=== PATIENT | male | born 1945 | race Caucasian/White ===

== ENCOUNTER 2016-05-23 16:15 | Emergency (ER) | payer MEDICARE, OTHER ==
[~2016-05-23] VITALS: Ht 177.8 cm; Wt 80.0 kg
[~2016-05-23 16:15] MED LIST: ALBU8I INH; LISI-360 PO; LORTA5 PO; OMEP20TA PO; PRED20 PO; SIMV10 PO; SYMB160A INH; TIOT18I INH
[2016-05-23 16:16] VITALS: BP 137/86; PULSE 84; RESP 15; TEMP 98.1; O2SAT 87
[2016-05-23 21:00] VITALS: BP 130/80; PULSE 78; RESP 20; O2SAT 96
[2016-05-23] MEDS ORDERED: methylPREDNISolone SOD SUCC 125 MG/2 ML VIAL IVP ONE (21:00)
[2016-05-23] MEDS ORDERED: SODIUM CHLORIDE 0.9% FLUSH 5 ML FLUSH IVF PRN (21:00)
--- NOTE | 2016-05-23 21:12 | PD ---
HPI Chief Complaint: Respiratory Symptoms Time Seen by Provider: 21:05 Travel History International Travel<30 days: Yes Contact w/Intl Traveler<30days: Yes Name of Country Traveled to: [place] 05/03/16 Traveled to known affect area: Yes History of Present Illness HPI 71-year-old male presents to the emergency Department with 2 day history of increased shortness of breath, cough, and decreased oxygenation. Patient normally uses 2 L of oxygen via nasal cannula at home for emphysema. Patient is a previous smoker. Patient denies fever, chills, nausea, vomiting, or diarrhea. He's has a little bit of a sore throat today. He denies significant sputum production with his cough. Patient states he's never used an inhaler or nebulizer in the past. Patient does state he has needed steroids in the past for his lung disease. He is followed by the [place]. Patient also has 2 diabetes for which he takes metformin. He has no known drug allergies. PFSH Past Medical History Cancer: No Cardiovascular Problems: No COPD: Yes Diabetes: Yes Diminished Hearing: No Endocrine: No Gastrointestinal Disorders: Yes (ACID REFLUX ) Genitourinary: No Hepatitis: No Hiatal Hernia: No Hypertension: Yes Immune Disorder: No Musculoskeletal: No Neurologic: No Psychiatric: No Reproductive: No Respiratory: Yes (COPD) Immunizations Current: Yes (H1N1) Thyroid Disease: No Past Surgical History Abdominal Surgery: Yes (appendectomy) AICD: No Appendectomy: Yes Arteriovenous Shunt: No Body Medical Devices: NONE Cardiac Surgery: No Ear Surgery: No Endocrine Surgery: No Eye Surgery: No Genitourinary Surgery: No Insulin Pump: No Joint Replacement: No Pacemaker: No Other Surgery: Yes (VASECTOMY) Social History Alcohol Use: Yes (2 BEERS WEEKLY) Tobacco Use: Yes (CIGARETTES, 1 PPD X 46 YEARS) Substance Use: No Allergies-Medications (Allergen,Severity, Reaction): Coded Allergies: No Known Allergies (Verified , 05/02/15) Reported Meds & Prescriptions Reported Meds & Active Scripts Active Hydrocodone/Acetaminophen 5 mg/325 mg 1 Tab Tab 1 Tab PO Q4H PRN Reported Ventolin Hfa (Albuterol Sulfate) 8 Gm Aero 1 Puff INH Q4H PRN * SHAKE WELL BEFORE USE * Deltasone 20 Mg Tab (Prednisone) 20 Mg Tab 20 Mg PO BID Lisinopril 10 mg (Lisinopril) 10 Mg Tab 10 Mg PO DAILY Simvastatin 10 mg (Simvastatin) 10 Mg Tab 5 Mg PO HS Spiriva 18 Mcg Oral Inh (Tiotropium [place]) 18 Mcg Inhp 1 Cap INH DAILY Symbicort (Budesonide/Formoterol Fumarate) 160 Mcg/4.5 Mcg Aer 2 Puff INH BID * SHAKE WELL BEFORE USE * Omeprazole 20 mg (Omeprazole) 20 Mg Tab 40 Mg PO DAILY Review of Systems Except as stated in HPI: all other systems reviewed are Neg General / Constitutional: No: Fever Eyes: No: Visual changes HENT: Positive: Sore Throat, No: Headaches, Rhinitis, Rhinorrhea, Congestion, Nosebleed, Earache Cardiovascular: No: Chest Pain or Discomfort Respiratory: Positive: Cough, Shortness of Breath, Wheezing, No: Sneezing, Orthopnea, Hemoptysis, Stridor, Night Sweats, Pleuritic Pain Gastrointestinal: No: Nausea, Vomiting, Diarrhea, Abdominal Pain Genitourinary: No: Dysuria Musculoskeletal: No: Pain Skin: No Rash Neurologic: No: Weakness Psychiatric: No: Depression Endocrine: No: Polydipsia Hematologic/Lymphatic: No: Easy Bruising Physical Exam Narrative GENERAL: Patient is in mild to moderate respiratory distress but appears otherwise medically stable. Patient is able to speak in short sentences. SKIN: Warm and dry. Normal color. Normal turgor. HEAD: Atraumatic. Normocephalic. EYES: Pupils equal and round. No scleral icterus. No injection or drainage. ENT: No nasal bleeding or discharge. Mucous membranes pink and moist. Mild sinus congestion. TMs are clear bilaterally. Pharynx appears normal with mild irritation in the posterior pharynx. Airway is patent. NECK: Trachea midline. No JVD. Supple nontender. CARDIOVASCULAR: Regular rate and rhythm. No murmurs gallops or rubs. RESPIRATORY: Moderate accessory muscle use. No retractions. Patient has mild tachypnea. Diffuse end expiratory wheezes to auscultation. Breath sounds equal bilaterally but diminished throughout. No rales or rhonchi appreciated. MUSCULOSKELETAL: Extremities without clubbing, cyanosis, or edema. No obvious deformities. NEUROLOGICAL: Awake and alert. No obvious cranial nerve deficits. Motor grossly within normal limits. Five out of 5 muscle strength in the arms and legs. Normal speech. PSYCHIATRIC: Appropriate mood and affect; insight and judgment normal. Data Data Last Documented VS Vital Signs Date Time Temp Pulse Resp B/P Pulse Ox O2 Delivery O2 Flow Rate FiO2 05/23/16 16:16 98.1 84 15 137/86 87 Nasal Cannula 2 Orders Complete Blood Count With Diff (05/23/16 20:54) Comprehensive Metabolic Panel (05/23/16 20:54) B-Type Natriuretic Peptide (05/23/16 20:54) D-Dimer (05/23/16 20:54) Act Partial Throm Time (Ptt) (05/23/16 20:54) Prothrombin Time / Inr (Pt) (05/23/16 20:54) Ckmb (Isoenzyme) Profile (05/23/16 20:54) Troponin I (05/23/16 20:54) Urinalysis - C+S If Indicated (05/23/16 20:54) Influenzae A/B Antigen (05/23/16 20:54) Iv Access Insert/Monitor (05/23/16 20:54) Electrocardiogram (05/23/16 20:54) Ecg Monitoring (05/23/16 20:54) Oximetry (05/23/16 20:54) Oxygen Administration (05/23/16 20:54) Chest, Single Ap (05/23/16 20:54) Sodium Chloride 0.9% Flush (Ns Flush) (05/23/16 21:00) Methylprednisolone So Succ Inj (Solumedr (05/23/16 21:00) Albuterol-Ipratropium Neb (Duoneb Neb) (05/23/16 21:00) Labs Laboratory Tests Test 05/23/16 21:00 White Blood Count 5.6 TH/MM3 Red Blood Count 5.35 MIL/MM3 Hemoglobin 17.7 GM/DL Hematocrit 52.1 % Mean Corpuscular Volume 97.3 FL Mean Corpuscular Hemoglobin 33.1 PG Mean Corpuscular Hemoglobin 34.0 % Concent Red Cell Distribution Width 13.2 % Platelet Count 183 TH/MM3 Mean Platelet Volume 9.2 FL Neutrophils (%) (Auto) 48.2 % Lymphocytes (%) (Auto) 30.7 % Monocytes (%) (Auto) 17.8 % Eosinophils (%) (Auto) 3.0 % Basophils (%) (Auto) 0.3 % Neutrophils # (Auto) 2.7 TH/MM3 Lymphocytes # (Auto) 1.7 TH/MM3 Monocytes # (Auto) 1.0 TH/MM3 Eosinophils # (Auto) 0.2 TH/MM3 Basophils # (Auto) 0.0 TH/MM3 CBC Comment DIFF FINAL Differential Comment Prothrombin Time 11.0 SEC Prothromb Time International 1.0 RATIO Ratio Activated Partial 27.4 SEC Thromboplast Time D-Dimer Quantitative (PE/DVT) 0.37 MG/L FEU [facility] Medical Decision Making Medical Screen Exam Complete: Yes Emergency Medical Condition: Yes Differential Diagnosis History of emphysema. Pneumonia. COPD with acute exacerbation. Hypoxia. Narrative Course Patient is felt to be medically stable at time of exam. Patient is oxygenating at 94% on 2 L via nasal cannula. Labs ordered including CBC, CMP. IV access is obtained patient is given 125 mg Solu-Medrol IV as well as a DuoNeb 3. Chest x-ray is ordered. 2200 hrs. patient care is taken over by Dr. Chan. Condition: Stable Ricky Restrepo May 23, 2016 21:12
[2016-05-23] MEDS: RESP: ALBUTEROL 2.5 MG/IPRATROPIUM 0.5 MG NEB (SCH) INH (21:30)
[2016-05-23 21:33] LABS: AUTOMATED NEUTROPHIL # 2.7 TH/MM3 (1.8-7.7); BASOPHIL % 0.3 % (0.0-2.0); EOSINOPHIL # 0.2 TH/MM3 (0-0.4); HEMATOCRIT 52.1 % (39.0-51.0); HEMO FLAGS DIFF FINAL; LYMPH % 30.7 % (9.0-44.0); LYMPHOCYTE # 1.7 TH/MM3 (1.0-4.8); MEAN CELL VOLUME 97.3 FL (80.0-100.0); MEAN CORPUSCULAR HEMOGLOBIN 33.1 PG (27.0-34.0); MONO % 17.8 % (0.0-8.0); NEUT % 48.2 % (16.0-70.0); PLATELET COUNT 183 TH/MM3 (150-450); RED BLOOD COUNT 5.35 MIL/MM3 (4.50-5.90); RED CELL DISTRIBUTION WIDTH 13.2 % (11.6-17.2); WHITE BLOOD COUNT 5.6 TH/MM3 (4.0-11.0)
[2016-05-23 21:46] LABS: APTT (PATIENT) 27.4 SEC (24.3-30.1)
--- NOTE | 2016-05-23 21:53 | RADRPT ---
EXAM DATE/TIME: 05/23/2016 21:09 [facility] COMPARISON: CHEST PA & LAT, May 05, 2015, 9:05. INDICATIONS : SOB MEDICAL HISTORY : Diabetes mellitus type II. Chronic obstructive pulmonary disease. SURGICAL HISTORY : None. ENCOUNTER: Initial ACUITY: 1 day PAIN SCORE: 0/10 LOCATION: chest FINDINGS: A single view of the chest demonstrates emphysema with large bullous changes left lung base similar t o April 2015. There is also some basal scarring, compressive atelectasis and fibrotic changes. No effusion. No pneumothorax. CONCLUSION: 1. Bullous changes at the left lung base similar to 2014. There is scarring and atelectasis as well. Underlying emphysema. Heart size upper limits normal. Rakesh Vigil MD on May 23, 2016 at 21:50 Board Certified Radiologist. This report was verified electronically.
[2016-05-23 22:37] LABS: ALKALINE PHOSPHATASE 113 U/L (45-117); ALT (GPT) 35 U/L (12-78); ANION GAP 8 MEQ/L (5-15); AST (GOT) 27 U/L (15-37); BICARBONATE 29.2 MEQ/L (21.0-32.0); BLOOD UREA NITROGEN 15 MG/DL (7-18); CHLORIDE 100 MEQ/L (98-107); CREATINE KINASE 185 U/L (39-308); GLOMERULAR FILTRATION RATE 68 ML/MIN (>89); POTASSIUM 4.1 MEQ/L (3.5-5.1); SODIUM (NA) 137 MEQ/L (136-145); TOTAL BILIRUBIN ADULT 0.7 MG/DL (0.2-1.0)
[2016-05-23 22:50] LABS: CKMB 8.2 NG/ML (0.5-3.6)
[2016-05-24] MEDS ORDERED: ALBUAER3 INH (00:03)
[2016-05-24] MEDS ORDERED: PRED50 PO (00:03)
--- NOTE | 2016-05-24 00:03 | PD ---
Data Data Last Documented VS Vital Signs Date Time Temp Pulse Resp B/P Pulse Ox O2 Delivery O2 Flow Rate FiO2 05/23/16 16:16 98.1 84 15 137/86 87 Nasal Cannula 2 Orders Complete Blood Count With Diff (05/23/16 20:54) Comprehensive Metabolic Panel (05/23/16 20:54) B-Type Natriuretic Peptide (05/23/16 20:54) D-Dimer (05/23/16 20:54) Act Partial Throm Time (Ptt) (05/23/16 20:54) Prothrombin Time / Inr (Pt) (05/23/16 20:54) Ckmb (Isoenzyme) Profile (05/23/16 20:54) Troponin I (05/23/16 20:54) Urinalysis - C+S If Indicated (05/23/16 20:54) Influenzae A/B Antigen (05/23/16 20:54) Iv Access Insert/Monitor (05/23/16 20:54) Electrocardiogram (05/23/16 20:54) Ecg Monitoring (05/23/16 20:54) Oximetry (05/23/16 20:54) Oxygen Administration (05/23/16 20:54) Chest, Single Ap (05/23/16 20:54) Sodium Chloride 0.9% Flush (Ns Flush) (05/23/16 21:00) Methylprednisolone So Succ Inj (Solumedr (05/23/16 21:00) Albuterol-Ipratropium Neb (Duoneb Neb) (05/23/16 21:00) CKMB (05/23/16 21:00) CKMB% (05/23/16 21:00) Labs Laboratory Tests Test 05/23/16 21:00 White Blood Count 5.6 TH/MM3 Red Blood Count 5.35 MIL/MM3 Hemoglobin 17.7 GM/DL Hematocrit 52.1 % Mean Corpuscular Volume 97.3 FL Mean Corpuscular Hemoglobin 33.1 PG Mean Corpuscular Hemoglobin 34.0 % Concent Red Cell Distribution Width 13.2 % Platelet Count 183 TH/MM3 Mean Platelet Volume 9.2 FL Neutrophils (%) (Auto) 48.2 % Lymphocytes (%) (Auto) 30.7 % Monocytes (%) (Auto) 17.8 % Eosinophils (%) (Auto) 3.0 % Basophils (%) (Auto) 0.3 % Neutrophils # (Auto) 2.7 TH/MM3 Lymphocytes # (Auto) 1.7 TH/MM3 Monocytes # (Auto) 1.0 TH/MM3 Eosinophils # (Auto) 0.2 TH/MM3 Basophils # (Auto) 0.0 TH/MM3 CBC Comment DIFF FINAL Differential Comment Prothrombin Time 11.0 SEC Prothromb Time International 1.0 RATIO Ratio Activated Partial 27.4 SEC Thromboplast Time D-Dimer Quantitative (PE/DVT) 0.37 MG/L FEU Sodium Level 137 MEQ/L Potassium Level 4.1 MEQ/L Chloride Level 100 MEQ/L Carbon Dioxide Level 29.2 MEQ/L Anion Gap 8 MEQ/L Blood Urea Nitrogen 15 MG/DL Creatinine 1.08 MG/DL Estimat Glomerular Filtration 68 ML/MIN Rate Random Glucose 101 MG/DL Calcium Level 8.5 MG/DL Total Bilirubin 0.7 MG/DL Aspartate Amino Transf 27 U/L (AST/SGOT) Alanine Aminotransferase 35 U/L (ALT/SGPT) Alkaline Phosphatase 113 U/L Total Creatine Kinase 185 U/L Creatine Kinase MB 8.2 NG/ML Troponin I LESS THAN 0.02 NG/ML B-Type Natriuretic Peptide 108 PG/ML Total Protein 8.1 GM/DL Albumin 4.0 GM/DL [facility] Medical Record Reviewed: Yes Supervised Visit with CHARU: Yes Narrative Course I, Dr. Chan, have reviewed the advance practice practitioner's documentation and am in agreement, met with the patient face to face, made the diagnosis, and the medical decision making was done by me. *My assessment and Findings: The patient is 71 years old. He has received 3 rounds of albuterol ipratropium as well as methylprednisolone. He arrives with a COPD exacerbation. His workup reveals the following: CBC & BMP Diagram 05/23/16 21:00 LFTs normal BNP 108 Tn < 0.02 Coags normal DDimer 0.37 EKG reveals sinus rhythm with a intraventricular conduction delay, stable Last 24 hours Impressions Chest X-Ray 05/23/[id number] Signed Impressions: Service Date/Time: Monday, May 23, 2016 21:09 - CONCLUSION: 1. Bullous changes at the left lung base similar to 2015. There is scarring and atelectasis as well. Underlying emphysema. Heart size upper limits normal. Rakesh Vigil MD The patient is resting comfortably and feels better, is alert and in no distress. The patients results and examination findings were discussed. The repeat examination is unremarkable and benign. The history, exam, diagnostic testing, and current condition do not suggest any significant pathology to warrant further testing, continued ED treatment, admission, or surgical evaluation at this point. The vital signs have been stable. The patient does not have uncontrollable pain, intractable vomiting, or other significant symptoms. The patient's condition is stable and appropriate for discharge. The patient will pursue further outpatient evaluation with a primary care physician or other designated or consulting physician as indicated in the discharge instructions. The patient expressed understanding and was agreeable with this plan. Diagnosis Primary Impression: COPD exacerbation Referrals: Primary Care Physician 2 days Additional Instruction: You have a choice when it comes to health care, and we are glad that you chose [facility]. Hopefully, we have met your expectations on today's visit. You are welcome to return to [facility] at any time, as we are committed to meeting the health care needs of our community. Med/Other Pt SpecificInfo: Prescription(s) given Scripts Prednisone 50 Mg Tab50 Mg PO DAILY 4 Days Ref 0 Prov:Thomas Chan MD 05/24/16 Albuterol 8.5 GM Inh (Proair Hfa 8.5 GM Inh)90 Mcg/Act Aer2 Puff INH Q6H PRN ( SHORTNESS OF BREATH) #1 INHALER Ref 0 108 mcg/actuation Prov:Thomas Chan MD 05/24/16 Disposition: 01 DISCHARGE HOME Condition: Stable Thomas Chan MD May 24, 2016 00:03
[2016-05-24 00:45] VITALS: BP 132/85; PULSE 78; RESP 16; O2SAT 95
--- NOTE | 2016-05-24 15:02 | EKG ---
Date Performed: 05/23/2016 Time Performed: 21:21:16 PTAGE: 71 years EKG: Sinus rhythm LBBB with secondary ST/T wave changes ABNORMAL ECG PREVIOUS TRACING : 05/03/2015 09.03 Since previous tracing, no significant change noted DOCTOR: Jagdeep Chan Interpretating Date/Time 05/24/2016 15:02:36
== END 2016-05-24 01:07 | disposition home or self-care (01) ==
LOC: NEPC 16:15
DX: J44.1 Chronic obstructive pulmonary disease with (acute) exacerbation (principal); Z87.891 Personal history of nicotine dependence
CPT/HCPCS: 71010; 80053; 82550; 82552; 83880; 84484; 85025; 85379; 85610; 85730; 87804; 93005; 94640; 94664; 96374; 99285; J2930